=== PATIENT | female | born 1985 ===

== ENCOUNTER 2024-06-17 14:25 | Outpatient (REF) | payer OTHER, MEDICAID, SELFPAY ==
--- NOTE | ~2024-06-17 | XR_ITS ---
EXAMINATION: XR ANKLE, RIGHT CLINICAL INFORMATION: Right ankle pain. COMPARISON: None available. TECHNIQUE: AP, lateral, and mortise views of the right ankle. FINDINGS: Ankle mortise is intact. There is no evidence of acute fracture or dislocation. No osteochondral defect or erosion are seen at the ankle mortise. Soft tissue swelling is noted over the ankle, greater laterally. There is suggestion of ankle joint effusion. Normal osseous mineralization. Bones are essentially unremarkable. No soft tissue calcifications. No evidence of radiopaque foreign body or soft tissue air. XR/XR ankle RT min 3V IMPRESSION: No evidence of acute fracture or dislocation in the right ankle. Soft tissue swelling over the ankle, greater laterally. Ankle joint effusion.
--- NOTE | ~2024-06-17 | XR_ITS ---
EXAMINATION: XR ANKLE, LEFT CLINICAL INFORMATION: Left ankle pain. COMPARISON: None available. TECHNIQUE: AP, lateral, and mortise views of the left ankle. FINDINGS: No fracture. Alignment is anatomic. No erosions. Joint spaces are maintained. Soft tissues are normal. XR/XR ankle LT min 3V IMPRESSION: Unremarkable left ankle x-ray.
== END 2024-06-17 14:26 | disposition home or self-care (01) ==
LOC: HO.HOSX 14:25
PROVIDERS: PCP Internal Medicine; Visit Provider Physician Assistant
DX: S93.401A Sprain of unspecified ligament of right ankle, initial encounter (principal); M25.572 Pain in left ankle and joints of left foot
CPT/HCPCS: 73610

== ENCOUNTER 2024-06-17 14:25 | Outpatient (AMB) | payer OTHER, SELFPAY ==
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
== END 2024-06-17 15:37 | disposition home or self-care (01) ==
LOC: HO.HOS 14:25
PROVIDERS: PCP Internal Medicine; Visit Provider Physician Assistant
DX: S93.401A Sprain of unspecified ligament of right ankle, initial encounter (principal); M25.572 Pain in left ankle and joints of left foot
CPT/HCPCS: 99203